=== PATIENT | female | born 1960 | race Caucasian/White ===

== ENCOUNTER 2018-07-20 12:36 | Emergency (ER) | payer OTHER ==
[2018-07-20 12:55] VITALS: BP 119/72; PULSE 95; TEMP 98.1; BMI 25.6
--- NOTE | 2018-07-20 13:40 | PDOC ---
History of Present Illness - General Chief Complaint: Rash Stated Complaint: SWELLING TO LIPS Time Seen by Provider: 07/20/18 12:56 History Source: Patient Exam Limitations: Language Barrier ([place] #[id number]) - History of Present Illness Initial Comments: 07/20/18 13:41 HISTORY OF PRESENT ILLNESS: This is a 58-year-old female with past medical history of herpes simplex and HIV (viral load undetectable, CD4 700) follows with Dr. goyal is ID at [facility] emergency department for reevaluation of herpes zoster. Patient was seen by her infectious disease specialist and started on valacyclovir starting yesterday. Patient is concerned that symptoms and have resolved as of this time. Patient denies any pain reports the rash is itchy. Patient has follow-up with her infectious disease specialist in one week. No recent travel or sick contacts. PAST MEDICAL HISTORY: See HPI SURGICAL HISTORY: Denies ALLERGIES: No known drug allergies REVIEW OF SYSTEMS General/Constitutional: Denies fever or chills. Denies weakness, weight change. HEENT: Denies change in vision. Denies ear pain or discharge. Denies sore throat. Cardiovascular: Denies chest pain or shortness of breath. Respiratory: Denies cough, wheezing, or hemoptysis. Gastrointestinal: Denies nausea, vomiting, diarrhea or constipation. Denies rectal bleeding. Genitourinary: Denies dysuria, frequency, or change in urination. Musculoskeletal: Denies joint or muscle swelling or pain. Denies neck or back pain. Skin and breasts: Facial rash. Neurologic: Denies headache, vertigo, loss of consciousness, or loss of sensation. Psychiatric: Denies depression or anxiety. Endocrine: Denies increased thirst. Denies abnormal weight change. Hematologic/Lymphatic: Denies anemia, easy bleeding, or history of blood clots. Allergic/Immunologic: Denies hives or skin allergy. Denies latex allergy. PHYSICAL EXAM General Appearance: Well-appearing, appropriately dressed. No apparent distress , no intoxication. HEENT: EOMI, PERRLA, normal ENT inspection, normal voice, TMs normal, pharynx normal. No conjunctival pallor. No photophobia, scleral icterus. Red reflex is within normal limits. No dendritic lesions presents after fluorescein. External auditory canals clear without lesions present. Neck: Supple. Trachea midline. No tenderness, rigidity, carotid bruit, stridor , lymphadenopathy, or thyromegaly. Respiratory/Chest: Lungs CTAB. No shortness of breath, chest tenderness, respiratory distress, accessory muscle use. No crackles, rales, rhonchi, stridor , wheezing, dullness Cardiovascular: RRR. S1, S2. No JVD, murmur, bradycardia, tachycardia. Vascular Pulses: Dorsalis-Pedis (R): 2+, Dorsalis-Pedis (L): 2+ Gastrointestinal/Abdominal: Normal bowel sounds. Abdomen soft, non-distended. No tenderness or rebound tenderness. No organomegaly, pulsatile mass, guarding, hernia, hepatomegaly, splenomegaly. Lymphatic: No adenopathy, tenderness. Musculoskeletal/Extremities: Normal inspection. FROM of all extremities, normal capillary refill. Pelvis Stable. No CVA tenderness. No tenderness to extremities, pedal edema, swelling, erythema or deformity. Integumentary: Erythematous vesicular rash present to right side of face over the trigeminal nerve. Neurologic: director of leadership development II-XII intact. Fully oriented, alert. Appropriate mood/affect. Motor strength 5/5. No appreciable EOM palsy, facial droop or sensory deficit. Past History - Past Medical History Home Medications: Ambulatory Orders Diphenhydramine HCl [Benadryl -] 25 mg PO ONCE 07/20/18 - Suicide/Smoking/Psychosocial Hx Smoking History: Never smoked *Physical Exam - Vital Signs Last Vital Signs Temp Pulse Resp BP Pulse Ox 98.1 F 95 H 20 119/72 95 07/20/18 12:54 07/20/18 12:54 07/20/18 12:54 07/20/18 12:54 07/20/18 12:54 Moderate Sedation - Procedure Monitoring Vital Signs: Procedure Monitoring Vital Signs Temperature 98.1 F 07/20/18 12:54 Pulse Rate 95 H 07/20/18 12:54 Respiratory Rate 20 07/20/18 12:54 Blood Pressure 119/72 07/20/18 12:54 O2 Sat by Pulse Oximetry (%) 95 07/20/18 12:54 Medical Decision Making - Medical Decision Making 07/20/18 13:49 58-year-old woman with history of HIV with herpes zoster Erythematous vesicular rash present to right side of face over trigeminal nerve Ocular exam is within normal limits No dendritic lesions present after fluorescein staining No Lord sign present External auditory canals clear without any lesions present. Discharge patient home to continue valacyclovir as prescribed by her infectious disease specialist. *DC/Admit/Observation/Transfer Diagnosis at time of Disposition: Herpes zoster Qualifiers: Herpes zoster complications: without complications Qualified Code(s): B02.9 - Zoster without complications - Discharge Dispostion Disposition: HOME Condition at time of disposition: Stable Decision to Admit order: No - Referrals Referrals: Janine Santos [Primary Care Provider] - - Patient Instructions Additional Instructions: Continue all medications as previously prescribed. Follow-up with Dr. goyal is reevaluation in one week. Return to emergency department for pain or any worsening symptoms. Continuar todos los medicamentos [place] se prescribi anteriormente. Seguimiento con el Dr. Braden para reevaluacin en oswaldo semana. Regrese al departamento de emergencias para el dolor o cualquier empeoramiento de los sntomas. - Post Discharge Activity Forms/Work/School Notes: Back to Work
== END 2018-07-20 13:58 | disposition home or self-care (01) ==
LOC: JERFT 12:36
DX: B02.9 Zoster without complications (principal); Z21 Asymptomatic human immunodeficiency virus [HIV] infection status
CPT/HCPCS: 99281-25